=== PATIENT | female | born 1940 | race Caucasian/White ===

== ENCOUNTER 2016-08-24 18:30 | Emergency (ER) | payer MEDICARE, BC ==
--- NOTE | ~2016-08-24 | CR72 ---
[facility] A Service of [facility] RADIOLOGY TEXT RESULTS PATIENT: LAINE TANNER LOCATION: [facility] : 41 UNIT #: [id number] AGE: [address]: Aditya Wilson MD SEX: F ORDER DR: [id number] [facility] [address] [place], [place] [address] [id number] E MR#: [id number] Acc #: [id number] NAME: LAINE TANNER. : 1940 SEX: F STUDY DATE/TIME: 08/24/2016 18:34 UNIT: [facility] ROOM: STUDY DESCRIPTION: CR Chest Single View Portable Attending Physician: Aditya Wilson M.D. Ordering Physician: Aditya Wilson M.D. Primary Care Physician: Willem Stark Jr., M.D. MEDICAL IMAGING REPORT This report is preliminary unless electronic signature is present EXAM Portable chest, 08/24 INDICATIONS Shortness of air with activity and body aches that started 3 days ago. FINDINGS AP portable chest is compared with 11/05/2014. Prominent soft tissue density in the right paratracheal stripe could reflect an enlarged thyroid gland or adenopathy. There is deviation of the trachea to the left. Consider non-emergent chest CT for followup. The lungs are clear except for right upper lobe granuloma. No pneumothorax. There is soft tissue fullness in the right paratracheal region with deviation of the trachea to the left. This probably reflects a substernal goiter. Nonemergent chest CT recommended follow up purposes. IMPRESSION No acute findings in the chest. There is soft tissue fullness in the right paratracheal region with deviation of the trachea to the left. This probably reflects a substernal goiter. Nonemergent chest CT recommended to exclude any adenopathy. Dictated by... Mahin Bhatt Jr., M.D. THIS IS AN ELECTRONICALLY VERIFIED REPORT Mahin Bhatt Jr., M.D. at 08/25/2016 3:41 PM RLK/irish TD: 08/24/2016 21:12 [facility] A Service of [facility] RADIOLOGY TEXT RESULTS PATIENT: LAINE TANNER [id number] 41 UNIT #: [id number] AGE: [address]: Aditya Wilson MD SEX: F ORDER DR: JOB #: [id number] MEDICAL IMAGING REPORT Page 1 of 1 COPY
--- NOTE | ~2016-08-24 | EKG ---
PATIENT: LAINE TANNER UNIT #: [id number] Ventricular Rate: 63 BPM Atrial Rate: 63 BPM P-R Interval: 158 ms QRS Duration: 86 ms Q-T Interval: 422 ms QTC Calculation(Bezet): 431 ms P Battiest: 66 degrees Calculated R Battiest: 68 degrees Calculated T Battiest: 47 degrees Diagnosis Line: Normal sinus rhythm Diagnosis Line: Normal ECG Diagnosis Line: When compared with ECG of 30-NOV-2013 07:36, Diagnosis Line: No significant change was found Diagnosis Line: Confirmed by SAMMY BAILEY MD ([id number]) on Diagnosis Line: 08/24/2016 10:02:31 PM INTERPRETING MD: JONNY
[~2016-08-24 18:30] MED LIST: ASPIRIN PO; CELEXA20 MG PO; CENTRUM SILVER PO; EXELON1 PATCH .2 TD; EXELON4.6 MG EXT; EXELON4.6 MG TD; FLEXERIL PO; GABAPENTIN300 MG PO; INDERAL40 MG PO; IRON325 ( 65 ) PO; LIPITOR PO; LISINOPRIL-HCTZ1 T20 PO; LORTAB 7.5-5001 TAB PO; MACROBID 100 M100 MG PO; METHIMAZOLE10 MG PO; NASACORT AQ; NEURONTIN300 MG PO; PHENERGAN PO; PHENERGAN25 MG PO; PREVACID PO; TAPAZOLE10 MG PO; TAPAZOLE5 MG PO; VICODIN 5/1 TAB 5/50 PO; VICODIN PO; ZESTORETIC 10/11 TAB PO; ZOCOR20 MG PO
[2016-08-24 18:49] LABS: BASOPHIL# 0.1 X10e3 (0-0.3); EOSINOPHIL# 0.1 X10e3 (0-0.7); EOSINOPHIL% 1.6 % (0.0-7.0); HEMOGLOBIN 11.5 gm/dL (12.0-16.0); LYMPHOCYTE# 1.9 X10e3 (1.0-3.5); LYMPHOCYTE% 23.8 % (17.0-45.0); MEAN CELL VOLUME 93.9 FL (83-96); MEAN CORPUSCULAR HEMOGLOBIN 30.7 PG (28-34); MEAN CORPUSCULAR HGB CONC 32.7 g/dL (30-36); MEAN PLATELET VOLUME 9.4 FL (6.5-11.5); MONOCYTE% 12.6 % (3.0-12.0); NEUTROPHIL# 4.8 X10e3 (1.5-7.1); PLATELET COUNT 262 X10e3 (140-420); RED BLOOD COUNT 3.73 X10e (3.90-5.30); RED CELL DISTRIBUTION WIDTH 13.3 % (11.0-15.5); WHITE BLOOD COUNT 7.9 X10e3 (4.0-10.5)
[2016-08-24 18:53] LABS: DIFF IND NO
[2016-08-24 19:03] LABS: POC - CKMB <1.0 ng/mL (0.0-7.9); POC - TROPONIN <0.05 ng/mL (<=0.05)
[2016-08-24 19:17] LABS: BILIRUBIN, DIRECT 0.1 mg/dL (0.0-0.2); BILIRUBIN,INDIRECT 0.6 mg/dL (0.0-0.9); BILIRUBIN,TOTAL 0.7 mg/dL (0.2-2.0); BUN/CREATININE RATIO 22.22; CALCIUM SERUM 9.3 mg/dL (8.4-10.2); CREATININE SERUM 0.9 mg/dL (0.6-1.4); GLOM FILT RATE Estimated 62.6 mL/min (>60); POTASSIUM 4.3 mmol/L (3.5-5.1); PROTEIN TOTAL SERUM 6.8 g/dL (6.0-8.3)
[2017-01-05] MEDS ORDERED: ZESTORETIC 10-1 EAC1 PO (13:31)
[2017-01-05] MEDS ORDERED: METHIMAZOLE10 MG PO (13:32)
[2017-01-05] MEDS ORDERED: CELEXA20 MG PO (13:32)
[2017-01-05] MEDS ORDERED: GABAPENTIN300 MG PO (13:33)
[2017-01-05] MEDS ORDERED: ASPIRIN81 M2 PO (13:33)
[2017-01-05] MEDS ORDERED: ROPINIROLE HC0.25 MG PO (13:33)
[2017-01-05] MEDS ORDERED: ATORVASTATIN CA10 MG PO (13:33)
[2017-01-05] MEDS ORDERED: NITROGLYCERIN0.4 MG SL (13:34)
== END 2016-08-24 20:37 | disposition home or self-care (01) ==
LOC: CED 18:30
PROVIDERS: Emergency Medicine
DX: R52 Pain, unspecified (principal); T43.595A Adverse effect of other antipsychotics and neuroleptics, initial encounter; E78.5 Hyperlipidemia, unspecified; F32.9 Major depressive disorder, single episode, unspecified; K21.9 Gastro-esophageal reflux disease without esophagitis; I10 Essential (primary) hypertension; Z90.49 Acquired absence of other specified parts of digestive tract; Z88.0 Allergy status to penicillin; Z88.8 Allergy status to other drugs, medicaments and biological substances; Z88.1 Allergy status to other antibiotic agents
CPT/HCPCS: 36415; 71010; 80048; 80076; 82550; 82553; 84484; 85025; 93005; 96361; 96374; 96375; 99284; J1200; J2930

== ENCOUNTER → 2016-09-07 | Outpatient (CLI) | payer MEDICARE, BC ==
[~2016-09-07] MED LIST changes: +ASPIRIN81 M2 PO; +ATORVASTATIN CA10 MG PO; +NITROGLYCERIN0.4 MG SL; +ROPINIROLE HC0.25 MG PO; +ZESTORETIC 10-1 EAC1 PO
--- NOTE | ~2016-09-07 | CT55 ---
[facility] A Service of [facility] & [facility] RADIOLOGY TEXT RESULTS PATIENT: LAINE TANNER LOCATION: [facility] : 41 UNIT #: [id number] AGE: [address]: Willem Stark MD SEX: F ORDER DR: [id number] [facility] [address] [place], [place] [address] [id number] O MR#: [id number] Acc #: [id number] NAME: LAINE TANNER : 1940 SEX: F STUDY DATE/TIME: 09/07/2016 16:32 UNIT: [facility] ROOM: STUDY DESCRIPTION: CT Chest W Dov Attending Physician: Willem Stark Jr., M.D. Referring Physician: Willem Stark Jr., M.D. Ordering Physician: Willem Stark Jr., M.D. Primary Care Physician: Willem Stark Jr., M.D. MEDICAL IMAGING REPORT This report is preliminary unless electronic signature is present EXAM CT chest with contrast DATE 09/07/2016 HISTORY 76-year-old female right upper lobe lung mass with deviation of the trachea to the left, detected on chest x-ray. Patient states shortness of breath upon exertion for 2-3 months, coughing upon awakening. Additional history of hypertension, atrial fibrillation, and heart disease. COMPARISON AP portable chest 08/24/2016. No prior CT chest for comparison at this institution. PROCEDURE 5 mm axial images from the thoracic inlet through the upper abdomen after IV contrast administration. Sagittal and coronal reformatted images were obtained. This CT exam was performed with one or more of the following radiation dose reduction techniques: automatic exposure control, adjustment of mA and/or kV according to patient size, and iterative reconstruction. FINDINGS There is asymmetric enlargement of the right thyroid lobe. The right thyroid lobe is heterogeneous with ill-defined areas of multinodular low density and coarse calcifications. The right thyroid lobe extends substernally, and displaces the trachea toward the left of midline. The entire craniocaudal extent of the thyroid gland is not included in the field of view, at its superior margin. It measures at least 8 cm craniocaudal x 4.5 cm AP x 6.1 cm transverse. The left thyroid lobe STS. [facility] A Service of [facility] & [facility] RADIOLOGY TEXT RESULTS PATIENT: LAINE TANNER LOCATION: [facility] : 41 UNIT #: [id number] AGE: [address]: Willem Stark MD SEX: F ORDER DR: appears diminutive in size, to the extent included in the imaging field of view. This right thyroid lobe enlargement is thought to correspond to the abnormal right upper paratracheal soft tissue thickening described on the chest x-ray. Heart size is normal. No pericardial effusion or pleural effusion. No pathologic adenopathy is identified. Normal caliber of the thoracic aorta. Benign calcified granulomatous change in the right upper lobe. No acute airspace disease. Probable mild centrilobular emphysema. Several tiny low-density lesions are scattered throughout the liver parenchyma which are too small to characterize, but are favored to represent a benign etiology such as cysts. A dominant low-density lesion in the lateral left hepatic segment measures about 8 mm. Cholecystectomy. Remainder of the included upper abdominal organs are within normal limits. No suspicious osseous abnormalities are identified. IMPRESSION 1. Enlarged heterogeneous multinodular substernal right thyroid lobe, resulting in tracheal deviation toward the left. This is thought to account for the right upper paratracheal soft tissue thickening described on the recent 08/24/2016 chest radiograph. This can be correlated to thyroid function test and/or thyroid ultrasound as deemed clinically appropriate for this patient. 2. Probable mild centrilobular emphysematous change and benign calcified granulomatous change in the chest. 3. Several tiny low-density lesions are scattered throughout the liver parenchyma, most of which are technically too small to characterize but are better favored to represent benign etiology such as cysts. 4. Cholecystectomy. Dictated by... Monica Mohamud M.D. THIS IS AN ELECTRONICALLY VERIFIED REPORT Monica Mohamud M.D. at 09/09/2016 9:41 AM GILL/bharath TD: 09/08/2016 10:08 JOB #: [id number] MEDICAL IMAGING REPORT Page 1 of 1 COPY
[2016-09-07 16:06] LABS: POC - CREATININE 1.1 mg/dL (0.44-1.03)
== END | disposition home or self-care (01) ==
LOC: CCAT 15:30
PROVIDERS: Family Medicine
DX: R91.8 Other nonspecific abnormal finding of lung field (principal); E04.2 Nontoxic multinodular goiter; Z90.49 Acquired absence of other specified parts of digestive tract
CPT/HCPCS: 71260; 82565; Q9967

== ENCOUNTER → 2016-11-20 | Outpatient (CLI) | payer MEDICARE, BC ==
--- NOTE | ~2016-11-20 | BD1 ---
[facility] A Service of [facility] & [facility] RADIOLOGY TEXT RESULTS PATIENT: LAINE TANNER LOCATION: [facility] : 41 UNIT #: [id number] AGE: [address]: Willem Stark MD SEX: F ORDER DR: [id number] [facility] [address] [place], [place] [address] [id number] O MR#: [id number] Acc #: [id number] NAME: LAINE TANNER : 1940 SEX: F STUDY DATE/TIME: 11/20/2016 12:34 UNIT: [facility] ROOM: STUDY DESCRIPTION: BD Dexa Bone Dens 1+ Site Attending Physician: Willem Stark Jr., M.D. Ordering Physician: Willem Stark Jr., M.D. Primary Care Physician: Willem Stark Jr., M.D. MEDICAL IMAGING REPORT This report is preliminary unless electronic signature is present EXAM DEXA scan 11/20/2016 HISTORY Status post menopause with no hormone replacement therapy. Osteopenia. Arthritis. Hyperthyroidism with thyroid medication for 5 years. Family history of osteoporosis in mother. Fractured ankle in last 10 years. FINDINGS Bone mineral density in the lumbar spine from L1-L4 on 1.091 g/cm2 which is 0.4 standard deviations above the mean when compared to the young adult reference population which is within the range of normal. This is 2.8 standard deviations above the mean when compared to the age-matched population. Compared with 01/02/2008 there has been an increase in bone mineral density in the lumbar spine of 0.5%. Bone mineral density in the left femoral neck was 0.839 g/cm2 which is 0.1 standard deviations below the mean when compared to the young adult reference population which is within the range of normal. This is 2 standard deviations above the mean when compared to the age-matched population. Compared with 01/02/2008 there has been an increase in bone mineral density in the left hip of 5.3%. IMPRESSION Bone mineral density in the lumbar spine and the left hip within the range of normal. Compared with 01/02/2008, there has been an increase in bone mineral density in the lumbar spine and the left hip. Dictated by... Joni Tanner M.D. THIS IS AN ELECTRONICALLY VERIFIED REPORT Joni Tanner M.D. at 11/23/2016 7:21 AM KRT/to [facility] A Service of [facility] & [facility] RADIOLOGY TEXT RESULTS PATIENT: LAINE TANNER [id number] 41 UNIT #: [id number] AGE: [address]: Willem Stark MD SEX: F ORDER DR: TD: 11/20/2016 19:30 JOB #: [id number] MEDICAL IMAGING REPORT Page 1 of 1 COPY
--- NOTE | ~2016-11-20 | MY29 ---
[facility] A Service of [facility] & [facility] RADIOLOGY TEXT RESULTS PATIENT: LAINE TANNER LOCATION: [facility] : 41 UNIT #: [id number] AGE: [address]: Willem Stark MD SEX: F ORDER DR: [id number] [facility] [address] [place], [place] [address] [id number] O MR#: [id number] Acc #: [id number] NAME: LAINE TANNER : 1940 SEX: F STUDY DATE/TIME: 11/20/2016 12:28 UNIT: [facility] ROOM: STUDY DESCRIPTION: MY ADY SCREENING W/ CAD BILAT Attending Physician: Willem Stark Jr., M.D. Ordering Physician: Willem Stark Jr., M.D. Primary Care Physician: Willem Stark Jr., M.D. MEDICAL IMAGING REPORT This report is preliminary unless electronic signature is present EXAM Digital screening mammogram, 11/20/2016; [facility] HISTORY 76-year-old woman positive family history, maternal grandmother. Prior bilateral breast biopsies. Annual screen. COMPARISON Mammograms date to 01/01/2011, with most recent 11/18/2015. TECHNIQUE Digital imaging of each breast was completed utilizing screening protocol. Review includes FDA-approved CAD device. FINDINGS Breast parenchyma is partially fatty replaced, mildly heterogeneous and there is mild dominance in the right breast. In addition, there is an approximate 1 cm nodule now present in the right subareolar location that is not clearly identified on the previous images. If present, it was much less conspicuous. It will require additional imaging for accurate characterization. This would include high-resolution spot compression views with both exaggerated CC and true lateral projections. Targeted right breast ultrasound will likely be indicated as well. Left breast is stable. There are no interval occurring microcalcifications. IMPRESSION Incomplete mammographic evaluation. Additional right breast imaging is recommended. See complete report. BIRADS 0, additional right breast imaging recommended. Patients over the age of 40 are entered into a reminder system with target due date for the next mammogram. A result letter will also be sent to the patient. [facility] A Service of [facility] & [facility] RADIOLOGY TEXT RESULTS PATIENT: LAINE TANNER [id number] UNIT #: [id number] AGE: [address]: Willem Stark MD SEX: F ORDER DR: BIRADS: 0 Incomplete; need additional imaging evaluation and/or prior mammograms for comparison. Dictated by... Singh Yin M.D. THIS IS AN ELECTRONICALLY VERIFIED REPORT Singh Yin M.D. at 11/23/2016 8:08 AM MOE/marita TD: 11/20/2016 18:34 JOB #: [id number] MEDICAL IMAGING REPORT Page 1 of 1 COPY
== END | disposition home or self-care (01) ==
LOC: CWCC 11:42
DX: Z12.31 Encounter for screening mammogram for malignant neoplasm of breast (principal); Z80.3 Family history of malignant neoplasm of breast; Z13.820 Encounter for screening for osteoporosis; Z78.0 Asymptomatic menopausal state
CPT/HCPCS: 77080; G0202

== ENCOUNTER → 2016-12-16 | Outpatient (CLI) | payer MEDICARE, BC ==
--- NOTE | ~2016-12-16 | MY25 ---
[facility] A Service of [facility] & [facility] RADIOLOGY TEXT RESULTS PATIENT: LAINE TANNER LOCATION: [facility] : 41 UNIT #: [id number] AGE: [address]: Willem Stark MD SEX: F ORDER DR: [id number] [facility] [address] [place], [place] [address] [id number] O MR#: [id number] Acc #: [id number] NAME: LAINE TANNER. : 1940 SEX: F STUDY DATE/TIME: 12/16/2016 12:29 UNIT: [facility] ROOM: STUDY DESCRIPTION: JEREMY LEYVA W/ CAD UNI RT Attending Physician: Willem Stark Jr., M.D. Referring Physician: Willem Strak Jr., M.D. Ordering Physician: Willem Stark Jr., M.D. Primary Care Physician: Willem Stark Jr., M.D. MEDICAL IMAGING REPORT This report is preliminary unless electronic signature is present EXAM Unilateral right digital diagnostic mammogram with CAD and targeted right breast ultrasound, 12/16/2016. INDICATIONS 76-year-old female presenting for further evaluation of a 1 cm nodule in the subareolar right breast. The patient has a positive family history for malignancy in a maternal grandmother. History of prior breast biopsies, but no personal history of breast cancer. The patient reports that following the recent mammogram, she noticed a palpable abnormality in the same location as the abnormality identified on the mammogram. TECHNIQUE Compression CC, compression MLO, true lateral and exaggerated CC lateral views of the right breast were obtained and reviewed with a FDA approved CAD device. Targeted ultrasound of the right breast in the subareolar region and in the area of palpable concern was also performed. COMPARISON Comparison mammogram, 11/20/2016, and prior studies dating back to 2014. FINDINGS MAMMOGRAPHIC FINDINGS The area of palpable concern on the right corresponds to the subareolar nodule identified on the recent mammogram. This measures up to about 11 mm mammographically. There are no associated suspicious microcalcifications. Adjacent benign-appearing calcifications are present. There is a scar marker on the right indicative of prior surgery. Ultrasound was then performed for further assessment. ULTRASOUND FINDINGS RIGHT BREAST STS. [facility] A Service of [facility] RADIOLOGY TEXT RESULTS PATIENT: LAINE TANNER LOCATION: [facility] : 41 UNIT #: [id number] AGE: [address]: Willem Stark MD SEX: F ORDER DR: The patient was initially scanned independently by the technologist and then rescanned in my presence. Physical exam (with patient consent) was performed by me here in the department and demonstrates a palpable nodule in the 11-12 o'clock position of the subareolar right breast corresponding to the mammographic abnormality. Ultrasound demonstrates a hypoechoic solid irregularly marginated microlobulated mass with internal color-flow measuring up to 11 x 10 x 13 mm on ultrasound. This is concordant with mammography and suspicious for malignancy. Ultrasound-guided core biopsy is recommended for further assessment. The mass is immediately adjacent to mildly prominent/dilated subareolar ducts. In the 6 o'clock position of the right breast, there is a duct that appears to be looped upon itself and measuring up to about 4 x 3 mm. This may have a small amount of debris within it, but there is no internal color-flow or focal intraluminal mass under real-time surveillance. This represents a probably benign finding and a followup ultrasound in 6 months is recommended for reassessment regardless of the pathology results for the subareolar solid mass described above. Findings regarding the recommendation for biopsy have been discussed with the patient. They have also been personally communicated to the breast account executive healthcare at the time of this dictation. The breast account executive healthcare is in the process of notifying the ordering physician office of Dr. Stark of the recommendation for biopsy. The patient has been scheduled for the biopsy at 1400 hours 12/17/2016. All parties have voiced understanding and agreement. IMPRESSION 1. Additional views of the right breast and targeted right breast ultrasound demonstrate a suspicious subareolar mass measuring up to about 11 mm in the right breast. Ultrasound-guided core biopsy recommended for further assessment. Findings are concerning for malignancy. The breast account executive healthcare has been notified of the recommendation for biopsy and the patient has been scheduled for the procedure tomorrow at 02:00 p.m. 2. There is a probably benign finding in the right breast at 6 o'clock separate from the solid nodule thought to represent a tortuous duct with debris within the lumen. This could less likely represent a complicated cyst. Suggest followup ultrasound in 6 months regardless of the pathology results for the suspicious solid mass in the right breast. Patients over the age of 40 are entered into a reminder system with target due date for the next mammogram. A result letter will also be sent to the patient. BIRADS: 4 Suspicious abnormality; biopsy should be considered. STAT * RESULT [facility]. [facility] A Service of [facility] & [facility] RADIOLOGY TEXT RESULTS PATIENT: LAINE TANNER LOCATION: [facility] #: [id number] : 41 UNIT #: [id number] AGE: [address]: Willem Stark MD SEX: F ORDER DR: Dictated by... Nikolas Morales M.D. THIS IS AN ELECTRONICALLY VERIFIED REPORT Nikolas Morales M.D. at 12/16/2016 4:25 PM Aby TD: 12/16/2016 13:52 JOB #: [id number] MEDICAL IMAGING REPORT Page 1 of 1 COPY
--- NOTE | ~2016-12-16 | US24 ---
[facility] A Service of [facility] & [facility] RADIOLOGY TEXT RESULTS PATIENT: LAINE TANNER LOCATION: [facility] : 41 UNIT #: [id number] AGE: [address]: Willem Stark MD SEX: F ORDER DR: [id number] [facility] [address] [place], [place] [address] [id number] O MR#: [id number] Acc #: [id number] NAME: LAINE TANNER. : 1940 SEX: F STUDY DATE/TIME: 12/16/2016 13:00 UNIT: [facility] ROOM: STUDY DESCRIPTION: US Breast Unilateral Attending Physician: Willem Stark Jr., M.D. Referring Physician: Willem Stark Jr., M.D. Ordering Physician: Willem Stark Jr., M.D. Primary Care Physician: Willem Stark Jr., M.D. MEDICAL IMAGING REPORT This report is preliminary unless electronic signature is present EXAM Targeted ultrasound of the right breast 12/17/2016 Please see report from the additional views right breast same date for this dictation. BIRADS: 4 - Suspicious abnormality. Biopsy should be considered. Dictated by... Nikolas Morales M.D. THIS IS AN ELECTRONICALLY VERIFIED REPORT Nikolas Morales M.D. at 12/21/2016 7:24 AM Chelsey TD: 12/16/2016 13:47 JOB #: [id number] MEDICAL IMAGING REPORT Page 1 of 1 COPY
== END | disposition home or self-care (01) ==
LOC: CMAM 11:46
DX: N63 Unspecified lump in breast (principal)
CPT/HCPCS: 76641; G0206

== ENCOUNTER → 2016-12-17 | Day surgery (SDC) | payer MEDICARE, BC ==
--- NOTE | ~2016-12-17 | US200 ---
[facility] A Service of [facility] & [facility] RADIOLOGY TEXT RESULTS PATIENT: LAINE TANNER LOCATION: [facility] : 41 UNIT #: [id number] AGE: [address]: Willem Stark MD SEX: F ORDER DR: [id number] [facility] [address] [place], [place] [address] [id number] O MR#: [id number] Acc #: [id number] NAME: LAINE TANNER : 1940 SEX: F STUDY DATE/TIME: 12/17/2016 14:02 UNIT: [facility] ROOM: STUDY DESCRIPTION: US Breast Guided Bx 1st Lesion Attending Physician: Willem Stark Jr., M.D. Referring Physician: Willem Stark Jr., M.D. Ordering Physician: Willem Stark Jr., M.D. Primary Care Physician: Willem Stark Jr., M.D. MEDICAL IMAGING REPORT This report is preliminary unless electronic signature is present ADDENDUM Pathology results have returned, documenting infiltrating ductal carcinoma of the breast, grade I/III, focus suspicious for lymph vascular space invasion present, no perineural invasion identified, microcalcifications present. Pathology and Radiology findings are concordant. Breast surgical consultation is advised. Dictated by... Monica Mohamud M.D. THIS IS AN ELECTRONICALLY VERIFIED REPORT Monica Mohamud M.D. at 12/24/2016 12:29 PM GILL/james TD: 12/23/2016 18:51 JOB #: [id number] MEDICAL IMAGING REPORT Page 1 of 1 COPY
--- NOTE | ~2016-12-17 | MY14 ---
[facility] A Service of [facility] & [facility] RADIOLOGY TEXT RESULTS PATIENT: LAINE TANNER LOCATION: [facility] : 41 UNIT #: [id number] AGE: [address]: Willem Stark MD SEX: F ORDER DR: [id number] [facility] [address] [place], [place] [address] [id number] O MR#: [id number] Acc #: [id number] NAME: LAINE TANNER : 1940 SEX: F STUDY DATE/TIME: 12/17/2016 14:17 UNIT: [facility] ROOM: STUDY DESCRIPTION: MY Post Bx Film Attending Physician: Willem Stark Jr., M.D. Referring Physician: Willem Stark Jr., M.D. Ordering Physician: Willem Stark Jr., M.D. Primary Care Physician: Willem Stark Jr., M.D. MEDICAL IMAGING REPORT This report is preliminary unless electronic signature is present EXAMINATION Post-biopsy mammogram with clip placement. CLINICAL HISTORY Suspicious right breast nodule, status post nodule biopsy with clip placement today. FINDINGS CC and ML views were obtained of the right breast in light compression. Two views confirm a biopsy clip placement at the lateral and inferior margin of the targeted right breast subareolar nodule. IMPRESSION 1. Two-view post-biopsy mammogram confirms biopsy clip placement in the subareolar nodule. Dictated by... Monica Mohamud M.D. THIS IS AN ELECTRONICALLY VERIFIED REPORT Monica Mohamud M.D. at 12/18/2016 1:53 PM GILL/marita TD: 12/17/2016 21:19 JOB #: [id number] MEDICAL IMAGING REPORT Page 1 of 1 COPY
== END | disposition home or self-care (01) ==
LOC: CWCC 13:34
DX: C50.111 Malignant neoplasm of central portion of right female breast (principal); Z17.0 Estrogen receptor positive status [ER+]
CPT/HCPCS: 88305; 88342; G0204

== ENCOUNTER → 2017-01-05 | Outpatient (CLI) | payer MEDICARE, BC ==
[2017-01-05 14:38] LABS: HEMATOCRIT 38.5 % (35.0-45.0); HEMOGLOBIN 13.1 gm/dL (12.0-16.0); MEAN CELL VOLUME 92.6 FL (83-96); MEAN CORPUSCULAR HEMOGLOBIN 31.5 PG (28-34); MEAN PLATELET VOLUME 8.8 FL (6.5-11.5); RED BLOOD COUNT 4.15 X10e (3.90-5.30); RED CELL DISTRIBUTION WIDTH 12.8 % (11.0-15.5); WHITE BLOOD COUNT 8.3 X10e3 (4.0-10.5)
[2017-01-05 15:31] LABS: BUN/CREATININE RATIO 16.36; CALCIUM SERUM 9.2 mg/dL (8.4-10.2); CREATININE SERUM 1.1 mg/dL (0.6-1.4); GLOM FILT RATE Estimated 49.1 mL/min (>60)
== END | disposition home or self-care (01) ==
LOC: CAMB 12:51
PROVIDERS: Surgery
DX: Z01.812 Encounter for preprocedural laboratory examination (principal)
CPT/HCPCS: 36415; 80048; 85027